=== PATIENT | female | born 1970 | race Hispanic/Latino ===

== ENCOUNTER 2018-12-22 19:07 | Emergency (ER) | payer MEDICAID | END 2018-12-22 19:50 | disposition home or self-care (01) | LOC: EDH 19:07 | DX: L30.4 Erythema intertrigo (principal); Z76.0 Encounter for issue of repeat prescription; E11.9 Type 2 diabetes mellitus without complications; I10 Essential (primary) hypertension; E78.5 Hyperlipidemia, unspecified; Z98.890 Other specified postprocedural states | CPT/HCPCS: 82948 ==

== ENCOUNTER → 2019-04-15 | Outpatient (CLI) | payer MEDICAID | END | disposition home or self-care (01) | LOC: SHCH 07:56 | PROVIDERS: ATTEND Internal Medicine Cardiovascular Disease | DX: I10 Essential (primary) hypertension (principal); R07.9 Chest pain, unspecified | CPT/HCPCS: 93306 ==

== ENCOUNTER → 2019-04-19 | Outpatient (CLI) | payer MEDICAID ==
[~2019-04-19] VITALS: Ht 160 cm; Wt 87.5 kg
[~2019-04-19] MED LIST: ASPI-555 PO; ATOR40TA71 PO; INSU100I3 SQ; INSU300I3 SQ; LISI10TA7 PO; METH750T3 PO; METO25TA6 PO; NITR0.4T SL; REGADENOSON 0.4 MG/5 ML PF SYG IVP SCH
== END | disposition home or self-care (01) ==
LOC: SHCH 07:59
PROVIDERS: ATTEND Internal Medicine Cardiovascular Disease
DX: I25.89 Other forms of chronic ischemic heart disease (principal); I10 Essential (primary) hypertension
CPT/HCPCS: 78452; 93017; 96374; A9500 ×2; J2785

== ENCOUNTER 2019-05-11 05:54 | Observation (INO) | payer MEDICAID ==
[2019-05-09 08:40] VITALS: BP 129/71
[2019-05-09 09:01] LABS: BASOPHILS % (AUTO) 0.8 % (0.0-5.0); EOSINOPHILS % (AUTO) 3.3 % (0.0-8.0); HEMATOCRIT 37.1 % (36-48); MEAN CORPUSCULAR HEMOGLOBIN 27.4 pg (27.0-33.0); MEAN CORPUSCULAR HGB CONC 32.9 g/dL (32.0-36.0); MEAN CORPUSCULAR VOLUME 83.5 fL (79-99); NEUTROPHILS % (AUTO) 51.9 % (40.0-77.0); NUCLEATED RED BLOOD CELLS 0.1 % (0.0-0.19); PLATELET COUNT (AUTO) 191 K/uL (130-400); RED BLOOD CELL COUNT(AUTO) 4.44 MIL/uL (4.00-5.50); RED CELL DISTRIBUTION WIDTH 13.5 % (11.0-15.5); WHITE BLOOD COUNT (AUTO) 4.4 K/uL (4.8-10.8)
[2019-05-09 09:08] LABS: CREATININE 0.9 mg/dL (0.5-1.5)
[2019-05-09 09:10] LABS: APPEARANCE,URINE Clear (CLEAR); BILIRUBIN,URINE Negative (NEGATIVE); COLOR,URINE Yellow (YELLOW); GLUCOSE, URINE (UA) >=1000 mg/dL (NEGATIVE); KETONES,URINE Negative (NEGATIVE); LEUKOCYTE ESTERASE ,URINE Negative (NEGATIVE); NITRATE,URINE Negative (NEGATIVE); OCCULT BLOOD,URINE Negative (NEGATIVE); PROTEIN,URINE POS 2+ mg/dL (NEGATIVE); UROBILINOGEN,URINE 0.2 mg/dL (0.2-1.0)
[2019-05-09 09:14] LABS: BACTERIA,URINE Rare /HPF (None Seen); RBC,URINE 0-1 /HPF (0-1); SQUAMOUS EPITHELIAL CELL,UR Few /HPF (0-2); WBC,URINE 0-1 /HPF (0-1); YEAST,URINE BUDDING Few /HPF (None Seen)
[2019-05-09 09:14] LABS: INR 0.95 (0.85-1.15); PARTIAL THROMBOPLASTIN TIME 24.5 SEC (26.3-35.5)
[~2019-05-11] VITALS: Ht 160 cm; Wt 87.5 kg
[2019-05-11] VITALS (22 sets, daily range): BP systolic 100–144; BP diastolic 42–89
[~2019-05-11 05:54] MED LIST changes: -REGADENOSON 0.4 MG/5 ML PF SYG IVP SCH; +SODIUM CHLORIDE 0.9% 500ML 500 ML IV SCH
[2019-05-11] MEDS ORDERED: SODIUM CHLORIDE 0.9% 1000ML 1,000 ML IV ONE (07:29)
[2019-05-11] MEDS ORDERED: NITROGLYCERIN 5 MG/ML 10 ML VIAL IV ONE (08:31)
[2019-05-11] MEDS ORDERED: IOHEXOL-350 50ML VIAL IV ONE ×2 (08:31→09:20)
[2019-05-11] MEDS ORDERED: LIDOCAINE HCL 2% 20ML ONE (08:31)
[2019-05-11] MEDS ORDERED: HEPARIN SODIUM 1000UNIT/ML 10ML VIAL ONE (08:31)
[2019-05-11] MEDS ORDERED: IOHEXOL 350 MG/ML 100ML INFUS..BTL IV ONE (08:31)
[2019-05-11] MEDS ORDERED: ASPIRIN 325MG EC TAB 325 MG TABLET.DR PO ONE (09:22)
[2019-05-11] MEDS ORDERED: CLOPIDOGREL BISULFATE 300 MG TAB ONE (09:22)
[2019-05-11] MEDS ORDERED: DEXTROSE 50%-WATER 50 ML DISP.SYRIN IV PRN (09:45)
[2019-05-11] MEDS ORDERED: ONDANSETRON HCL 4 MG/2 ML VIAL IVP PRN ×2 (09:45→11:20)
[2019-05-11] MEDS ORDERED: MORPHINE SULFATE 5 MG/ML VIAL IVP PRN (09:45)
[2019-05-11] MEDS ORDERED: NITROGLYCERIN 0.4 MG SL TAB SL SCH (09:45)
--- NOTE | 2019-05-11 10:36 | NUR ---
CONSULT BECCA LARA LICENSE REGISTRATION EXAMINER ( WITH DR. Steffen KENDALL) NOTIFIED OF PATIENT'S ADMISSION, NOTIFY THEM THAT PENDING INPATIENT ROOM
[2019-05-11] MEDS: INSULIN HUMULIN R 100 UNIT/ML 3ML SQ SCH ×3 (11:30→21:00)
[2019-05-11] MEDS: INSULIN LISPRO 100 UNIT/ML 3ML SQ SCH ×2 (12:00→17:18)
--- NOTE | 2019-05-11 12:05 | NUR ---
PTT DRAW WAITING ON RESULTS TO PULL SHEATH.
--- NOTE | 2019-05-11 14:00 | NUR ---
PTT IS 51 WNL TO PULL SHEATH.
[2019-05-11] MEDS ORDERED: ATROPINE SULFATE 0.1 MG/ML 10 ML SYG IVP ONE (14:10)
--- NOTE | 2019-05-11 15:00 | NUR ---
REPORT GIVEN TO HAYDEN BUTLER RN AT BEDSIDE. 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 PT. IS STABLE AND NO COMPLICATIONS.
[2019-05-11] MEDS: SODIUM CHLORIDE 0.9% 10 ML VIAL IV SCH (15:15)
[2019-05-11] MEDS: METOPROLOL TARTRATE 25 MG TAB PO SCH (21:23)
[2019-05-12] VITALS: BP 116/64
[2019-05-12] MEDS: SODIUM CHLORIDE 0.9% 10 ML VIAL IV SCH ×2 (01:15→10:47)
[2019-05-12 04:06] VITALS: BP 120/70
[2019-05-12 04:30] LABS: BASOPHILS % (AUTO) 0.7 % (0.0-5.0); HEMATOCRIT 36.7 % (36-48); LYMPHOCYTES % (AUTO) 34.3 % (21.0-51.0); MEAN CORPUSCULAR HEMOGLOBIN 27.3 pg (27.0-33.0); MEAN CORPUSCULAR VOLUME 82.7 fL (79-99); PLATELET COUNT (AUTO) 216 K/uL (130-400); RED BLOOD CELL COUNT(AUTO) 4.43 MIL/uL (4.00-5.50); RED CELL DISTRIBUTION WIDTH 13.4 % (11.0-15.5); WHITE BLOOD COUNT (AUTO) 5.7 K/uL (4.8-10.8)
[2019-05-12 04:51] LABS: POTASSIUM 3.8 mmol/L (3.5-5.1)
[2019-05-12 05:18] LABS: MAGNESIUM 1.4 mg/dL (1.80-2.40); PHOSPHORUS 3.9 mg/dL (2.5-4.9); THYROID STIMULATING HORMONE 2.01 uIU/mL (0.36-3.74)
[2019-05-12] MEDS: INSULIN HUMULIN R 100 UNIT/ML 3ML SQ SCH ×3 (06:43→16:21)
[2019-05-12 07:56] VITALS: BP 130/75
[2019-05-12] MEDS ORDERED: MAGNESIUM 2GM PREMIX 50ML 50 ML IV SCH (08:00)
[2019-05-12] MEDS: METOPROLOL TARTRATE 25 MG TAB PO SCH (08:36)
[2019-05-12] MEDS: INSULIN LISPRO 100 UNIT/ML 3ML SQ SCH ×2 (08:42→12:16)
[2019-05-12] MEDS ORDERED: ATORVASTATIN CALCIUM 40 MG TABLET PO SCH (09:00)
[2019-05-12] MEDS: Methocarbamol 750 MG PO SCH ×2 (09:00→13:47)
[2019-05-12] MEDS ORDERED: ASPIRIN 81 MG EC TAB PO SCH (09:00)
[2019-05-12] MEDS ORDERED: LISINOPRIL 10 MG TABLET PO SCH (09:00)
[2019-05-12] MEDS ORDERED: CLOPIDOGREL BISULFATE 75 MG TAB PO SCH (09:00)
[2019-05-12] MEDS ORDERED: INSULIN GLARGINE 100 UNITS/ML 10 ML VIAL SQ SCH (09:00)
--- NOTE | 2019-05-12 11:30 | NUR ---
PATIENT STATES THAT SHE WILL NOT HAVE A RIDE TILL HER SISTER GETS OUT OF WORK, MOST LIKELY AFTER 5 PM. Addendum: 05/12/19 at 1132 by WALTER BUTLER RN RN Amended: Links added.
[2019-05-12 11:57] VITALS: BP 113/60
--- NOTE | 2019-05-12 12:19 | NUR ---
RD NOTIFICATION DX: ANGINA. S/P STENT PLACEMENT. HX: DM, HLD, HTN, CAD, OBESITY. DIET: 90GMCCD. PO INTAKE 100% AND HAS GOOD APPETITE PER PT. LBM: 05/11 PER PT. PT STATED SHE HAS DIFFICULTY CHEWING FOOD DUE TO MISSING TEETH BUT REFUSED TEXTURE MODIFICATIONS. RD PROVIDED DIABETES AND HEART HEALTHY DIET AND NUTRITION EDUCATION. PT STATED SHE EATS AT A CENTER AND THEY FEED PT ACCORDING TO HER HEALTH NEEDS. PT HAS ATTEMPTED MAKING HEALTHY FOOD CHOICES IN THE PAST AND IS MOTIVATED TO CONTINUE TRYING TO EAT HEALTHY. SHE DID MENTION THAT SHE HAS TRIED TO KEEP BG LEVELS IN NORMAL RANGE (SHE CHECKS LEVELS REGULARLY) HOWEVER, UNABLE TO NORMALIZE LEVELS WITH MEDS AND DIET. PT ASKED QUESTIONS, RD ANSWERED AND PT VERBALIZED UNDERSTANDING. EDUCATION MATERIALS PROVIDED. RD RECOMMENDS CHANGE DIET ORDER TO 75GMCCD, DC 90GMCCD ADD HEART HEALTHY TO DIET ORDER RD PROVIDED MEDICAL NUTRITION THERAPY RECOMMENDATIONS, MATERIALS PROVIDED RD WILL FOLLOW UP NEEDED, THANK YOU. Addendum: 05/12/19 at [address] Amended: Links added.
--- NOTE | 2019-05-12 12:27 | NUR ---
NUTRITION EDUCATION PT STATED SHE HAS DIFFICULTY CHEWING FOOD DUE TO MISSING TEETH BUT REFUSED TEXTURE MODIFICATIONS. RD PROVIDED DIABETES AND HEART HEALTHY DIET AND NUTRITION EDUCATION. PT STATED SHE EATS AT A CENTER AND THEY FEED PT ACCORDING TO HER HEALTH NEEDS. PT HAS ATTEMPTED MAKING HEALTHY FOOD CHOICES IN THE PAST AND IS MOTIVATED TO CONTINUE TRYING TO EAT HEALTHY. SHE DID MENTION THAT SHE HAS TRIED TO KEEP BG LEVELS IN NORMAL RANGE (SHE CHECKS LEVELS REGULARLY) HOWEVER, UNABLE TO NORMALIZE LEVELS WITH MEDS AND DIET. PT ASKED QUESTIONS, RD ANSWERED AND PT VERBALIZED UNDERSTANDING. EDUCATION MATERIALS PROVIDED. Addendum: 05/12/19 at [address] Amended: Links added.
[2019-05-12 15:25] VITALS: BP 109/64
== END 2019-05-12 17:25 | disposition home or self-care (01) ==
LOC: DAH 05:54 → DAHIP 05:55 → UNDOADMOB 10:03 → 2AH 15:06
PROVIDERS: ADMIT Internal Medicine; ATTEND Internal Medicine
DX: I25.119 Atherosclerotic heart disease of native coronary artery with unspecified angina pectoris (principal); E11.9 Type 2 diabetes mellitus without complications; I11.9 Hypertensive heart disease without heart failure; E78.5 Hyperlipidemia, unspecified; F79 Unspecified intellectual disabilities; E83.42 Hypomagnesemia; E66.09 Other obesity due to excess calories; Z96.1 Presence of intraocular lens; Z95.5 Presence of coronary angioplasty implant and graft; Z98.49 Cataract extraction status, unspecified eye; Z79.82 Long term (current) use of aspirin; Z79.02 Long term (current) use of antithrombotics/antiplatelets; Z79.4 Long term (current) use of insulin; Z79.899 Other long term (current) drug therapy; Z68.34 Body mass index [BMI] 34.0-34.9, adult
CPT/HCPCS: 36415 ×3; 71045; 80048 ×2; 80061; 81001; 82948 ×8; 83036; 83735; 84100; 84439; 84443; 84703; 85025 ×2; 85610; 85730 ×3; 93005; 93458; 96365; 96366; 96372 ×2; A4215; A4216; A4221; A4222; A4223 ×3; A4606; A4663; A6260; C1769; C1874; C1887; C1894; C9600; G0378 ×29; J1644 ×3; J1815; J3475; J3490 ×2; J7030; J7040; Q9965; Q9967 ×3; J0461